=== PATIENT | female | born 1985 | race Caucasian/White ===

== ENCOUNTER → 2019-06-02 | Outpatient (REF) | LOC: M LAB LCGH 11:57 | PROVIDERS: ATTEND Physician Assistant | DX: D22.5 Melanocytic nevi of trunk (principal) ==

== ENCOUNTER → 2019-08-16 | Outpatient (REF) | payer OTHER | LOC: M SFHCLERA 09:34 | PROVIDERS: ATTEND Nurse Practitioner Family | DX: N94.9 Unspecified condition associated with female genital organs and menstrual cycle (principal) ==

== ENCOUNTER → 2022-06-09 | Outpatient (REF) | payer OTHER | LOC: M LAB REF 11:15 | PROVIDERS: ATTEND Physician Assistant Medical | DX: R05.9 Cough, unspecified (principal); R50.9 Fever, unspecified; M79.10 Myalgia, unspecified site ==